=== PATIENT | male | born 1970 | race Caucasian/White ===

== ENCOUNTER 2017-12-12 01:11 | Emergency (ER) | payer BC ==
[2017-12-12 01:18] VITALS: BP 169/96
--- NOTE | 2017-12-12 01:32 | ER Document Report ---
HPI - HPI Pain Level: 4 Notes: Patient is a 47-year-old male no significant past medical history who presents to the ED complaining of dental pain to #82-3 days with swelling that started this morning. Patient states that he does have caps placed on his 2 front teeth and has poor dentition throughout. He has not noticed any purulent discharge. He is still able to eat and drink without any difficulties otherwise. He is urinating normally and having normal bowel movements. He denies any drug allergies. Denies any IV drug use. Denies any headache, fever , head injury, neck pain, URI, sore throat, chest pain, palpitations, syncope, cough, shortness of breath, wheeze, dyspnea, abdominal pain, nausea/vomiting/ diarrhea, urinary retention, dysuria, hematuria, or rash. - ROS Systems Reviewed and Negative: Yes All other systems reviewed and negative <SHANNAN VALDEZ - Last Filed: 12/12/17 01:44> Past Medical History - Social History Smoking Status: Unknown if Ever Smoked Family History: Reviewed & Not Pertinent <SHANNAN VALDEZ - Last Filed: 12/12/17 01:44> Vertical Provider Document - CONSTITUTIONAL Agree With Documented VS: Yes Notes: PHYSICAL EXAMINATION: GENERAL: Well-appearing, well-nourished and in no acute distress. HEAD: Atraumatic, normocephalic. EYES: Pupils equal round and reactive to light, extraocular movements intact, sclera anicteric, conjunctiva are normal. ENT: EAC clear b/l. TM's intact b/l without erythema, fluid, or perforation. Nares patent and without discharge. oropharynx clear without exudates. No tonsilar hypertrophy or erythema. Moist mucous membranes. No sinus tenderness. Uvula midline. No palatine shift. No tongue protrusion. No respiratory compromise. Mouth: Poor dentition. + moderate decay and mild gingivitis. No obvious abscess or discharge noted. + upper lip/facial swelling. + tenderness to tooth #8. NECK: Normal range of motion, supple without lymphadenopathy. No rigidity/ meningismus. LUNGS: Breath sounds clear to auscultation bilaterally and equal. No wheezes rales or rhonchi. HEART: Regular rate and rhythm without murmurs, rubs, gallops. NEUROLOGICAL: Cranial nerves grossly intact. Normal speech, normal gait. Normal sensory, motor exams PSYCH: Normal mood, normal affect. SKIN: Warm, Dry, normal turgor, no rashes or lesions noted. - INFECTION CONTROL TRAVEL OUTSIDE OF THE [place] IN LAST 30 DAYS: No <SHANNAN VALDEZ - Last Filed: 12/12/17 01:44> Course - Re-evaluation Re-evalutation: 12/12/17 01:45 Patient is an afebrile, well-hydrated, 39-year-old male who presents to the ED with dental pain and mild swelling. Ultrasound was performed (by Dr. Talley) and no fluctuance was noted. Suspect primarily cellulitic tissue. Vitals are acceptable. PE is otherwise unremarkable. Patient is tolerating p.o. No I&D, labs, or other imaging warranted at this time based on H&P. Viscous lidocaine dispensed today. I will send him home with a prescription for penicillin. Low suspicion for any meningitis, sepsis, peritonsillar/ pharyngeal abscess, respiratory compromise, Juan Manuel's, temporal arteritis, or other emergent systemic condition at this time. Patient is aware this condition can change from initial presentation and he needs to monitor symptoms closely. Conservative measures otherwise for symptoms. Call to schedule an appointment with a dentist for further evaluation and management. Recheck with your PCM this week as well. Return to the ED with any worsening/concerning symptoms otherwise as reviewed in discharge. Patient is in agreement. - Vital Signs Vital signs: Temp Pulse Resp BP Pulse Ox 99.1 F 79 18 169/96 H 97 12/12/17 01:17 12/12/17 01:17 12/12/17 01:17 12/12/17 01:17 12/12/17 01:17 <SHANNAN VALDEZ - Last Filed: 12/12/17 01:44> - Vital Signs Vital signs: Temp Pulse Resp BP Pulse Ox 99.1 F 79 18 169/96 H 97 12/12/17 01:17 12/12/17 01:17 12/12/17 01:17 12/12/17 01:17 12/12/17 01:17 <SKINNY TALLEY - Last Filed: 12/12/17 02:01> Discharge <SHANNAN VALDEZ - Last Filed: 12/12/17 01:44> <SKINNY TALLEY - Last Filed: 12/12/17 02:01> - Discharge Clinical Impression: Pain, dental Condition: Stable Disposition: HOME, SELF-CARE Instructions: Penicillin V K ([facility]), Toothache ([facility]) Additional Instructions: [place] and floss twice daily Maintain fluid intake Take antibiotics as directed Mouthwash, salt water gargles, peroxide rinse as needed Tylenol/ibuprofen as needed Recheck with PCM this week Call today/tomorrow and schedule an appointment with your dentist for further evaluation Return to the ED with any worsening symptoms and/or development of fever, headache, facial swelling, swelling of lips/tongue/throat, trouble swallowing, drooling, hoarseness, neck pain/stiffness, chest pain, palpitations, syncope, shortness of breath, trouble breathing, abdominal pain, n/v/d, numbness/tingling , or other worsening symptoms that are concerning to you. Prescriptions: Penicillin V Potassium [Penicillin Vk 250 mg Tablet] 500 mg PO Q6 #80 tablet Forms: Elevated Blood Pressure Referrals: JUVENAL COLLINS DDS [ACTIVE STAFF] - 12/14/17
[2017-12-12] MEDS ORDERED: LIDOCAINE 2% VISCOUS SOLN 20 ML UDCUP PO ONE (01:45)
== END 2017-12-12 02:07 | disposition home or self-care (01) ==
LOC: ER 01:11
DX: K02.9 Dental caries, unspecified (principal); K05.10 Chronic gingivitis, plaque induced; K08.89 Other specified disorders of teeth and supporting structures; R22.0 Localized swelling, mass and lump, head
CPT/HCPCS: 99282; J3490